=== PATIENT | male | born 1950 ===

== ENCOUNTER 2017-06-19 14:52 | Inpatient (IN) | payer BC, SELFPAY ==
[~2017-06-19 14:52] MED LIST: Dexamethasone 20 MG/5 ML VIAL ONE; Glycopyrrolate 0.2 MG/ML 5 ML SYRINGE ONE; Iopamidol 370 76% 150 ML VIAL FS ONE; Ondansetron PF 4 MG/2 ML Vial ONE; PROPOFOL 200 MG/20 ML VIAL ONE; Succinylcholine Chloride 20 MG/ML 10 ml SYRINGE FS ONE
--- NOTE | 2017-06-19 15:20 | CT ---
CT BRAIN WITHOUT CONTRAST: Date: 06/19/17 HISTORY: Slurred speech and left arm paralysis. FINDINGS: No evidence of infarct, hemorrhage, midline shift, or abnormal extra-axial fluid collections are seen . The ventricular size is appropriate and the basilar cisterns are patent. The bony calvarium is inta ct. The visualized paranasal sinuses and mastoid air cells are well aerated. IMPRESSION: No CT evidence of acute intracranial process. Findings discussed over the telephone with ER physician, Dr. Barry, at 1503 hours. CODE CR. POS: JOSE ALBERTO
[2017-06-19 15:51] LABS: #Basophils 0.1 thou/uL (0.0-0.2); #Eosinphils 0.3 thou/uL (0.0-0.7); #Lymphocytes 1.2 thou/uL (1.20-3.40); #Monocytes 0.7 thou/uL (0.11-0.59); #Neutrophils 4.5 thou/uL (1.40-6.50); %Basophils 1.3 % (0.0-1.0); %Eosinophils 3.8 % (0.0-10.0); %Lymphocytes 17.6 % (21.0-51.0); %Monocytes 10.8 % (0.0-10.0); %Neutrophils 66.5 % (42.0-75.0); Hemoglobin 11.7 g/dL (14.0-18.0); Mean Corpuscular HGB CONC 33.2 g/dL (32.0-36.0); Mean Corpuscular Hemoglobin 28.8 pg (27.0-31.0); Mean Corpuscular Volume 86.8 fl (80.0-94.0); Mean Platelet Volume 7.1 fL (7.4-10.4); Platelet Count 348 thou/uL (130-400); RBC Distribution Width 13.5 % (11.5-14.5); Red Blood Cell (RBC) Count 4.05 mill/uL (4.70-6.10); White Blood Cell (WBC) Count 6.7 thou/uL (4.8-10.8)
[2017-06-19 15:57] LABS: INR-International Normal Ratio 1.1; PTT 25.8 SEC (22.9-36.1); Prothrombin Time 14.1 SEC (12.0-14.7)
[2017-06-19 16:13] LABS: ALT (SGPT) 28 U/L (8-55); AST (SGOT) 24 U/L (5-34); Alkaline Phosphatase 117 U/L (40-150); Anion Gap 13 mmol/L (10-20); BUN (Urea Nitrogen) 30 mg/dL (8.4-25.7); Bilirubin, Total 0.3 mg/dL (0.2-1.2); Calc. Creatinine Clearance 0 mL/min (70-130); Calcium 8.9 mg/dL (7.8-10.44); Carbon Dioxide 20 mmol/L (23-31); Chloride 106 mmol/L (98-107); Estimated GFR-MDRD 50; Globulin 2.8 g/dL (2.4-3.5); Glucose 112 mg/dL (80-115); Potassium 4.4 mmol/L (3.5-5.1); Protein, Total 6.8 g/dL (5.8-8.1); Sodium 135 mmol/L (136-145)
[2017-06-19 16:14] LABS: Troponin I Less than 0.010 ng/mL (< 0.028)
[2017-06-19] MEDS ORDERED: Heparin 10,000 UNITS/1 ML VIAL ONE ×2 (16:40)
[2017-06-19 17:09] LABS: Bilirubin Negative (Negative); Blood, Urine Moderate (Negative); Clarity CLEAR (Clear); Glucose, Urine (Dipstick) Negative (Negative); Leukocyte Negative (Negative); Nitrite Negative (Negative); Protein, Urine (Dipstick) Negative (Neg-Trace); Specific Gravity, Urine 1.038 (1.002-1.036); Urobilinogen 0.2 mg/dL (0.2-1.0)
--- NOTE | 2017-06-19 17:09 | CT ---
CTA BRAIN WITH 3D VOLUME RENDERING CT NECK WITH 3D VOLUME RENDERING CTA BRAIN PERFUSION 06/19/17 CLINICAL HISTORY: Stroke, slurred speech and left arm paralysis. FINDINGS: Imaged aortic arch is patent as are the great vessels that emanate from the aortic arch. Each subclav daron artery is grossly patent. The bilateral common carotid arteries reveal no high grade focal stenos is or occlusion. There is a focal noncalcified plaque at the proximal aspect of the cervical right IC A with a subtle linear hypodensity emanating from the anterior aspect which may relate to a small are a of focal dissection. This produces slightly less than 50% focal narrowing. Cervical left ICA is pat ent. There is a focal filling defect indicating soft plaque producing thrombus at the right M1 segmen t within an approximate 1 cm length of absent contrast. There is reconstitution of flow within right side Sylvian peripheral MCA branches. No high grade stenosis or occlusion involving the left MCA, eit her HILTON or ATMOSPHERIC CHEMIST. Anterior communicating artery region is grossly unremarkable. CTA perfusion portion of the exam reveals a prominent sized region of reduced blood flow within the r ight MCA territory, both anterior and posterior divisions and extending into the right temporal lobe. Within the anterior division of right MCA territory, there is also reduced blood volume indicating c ompleted infarct. Relatively preserved volume, compared to blood flow is seen within the posterior di vision right MCA territory and within the right temporal lobe indicating moderate sized region of pen umbra. IMPRESSION: 1. Evidence to indicate an acute, soft plaque thrombus of the right MCA with associated large re gion of reduced blood flow within the right cerebral hemisphere. This does contain an area of complet ed infarction at the anterior division right MCA territory. CTA perfusion findings compatible with pe numbra are seen within the posterior division right MCA territory and right temporal lobe. These findings were conveyed via telephone to neurosurgeon, Hari Schwartz, at 1600 hours, 06/19/17. Code CR POS: RIAZ
[2017-06-19 17:11] LABS: Bacteria/HPF None Seen HPF (None Seen); Hyaline Casts/LPF 0-3 HYALINE CAST LPF (0-3 Hyaline); Pathc Cast-AUWi Flag 0.27 (0-2.49); RBC/HPF 21-50 HPF (0-3); Squamous Epithelial 0-3 HPF (0-3); WBC/HPF 0-3 HPF (0-3)
[2017-06-19 17:21] LABS: Renal Epithelial 0-3 HPF (0-3); Transitional Epithelial 0-3 HPF (0-3)
--- NOTE | 2017-06-19 17:27 | PRG ---
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 He developed abrupt onset of left dense hemiparesis with associated facial droop. He was brought to the ER where he underwent imaging which reveals no evidence for hemorrhage, but does reveal the presence of a thrombus within the right M1 segment. He had a perfusion study which reveals the presence of both ischemia and infarct. He has been receiving tPA in the ER and is now on his way to the [facility] for angiography and potential mechanical thrombectomy. He has no family present. He is, however, alert and oriented and understands the procedure. He is about to undergo as well as associated risks and benefits. The plan will be a diagnostic cerebral angiography while awake and potentially mechanical thrombectomy under general anesthesia. EVELIN
--- NOTE | 2017-06-19 17:48 | HP ---
DATE OF ADMISSION: 06/19/2017 PRIMARY CARE PHYSICIAN: Dr. Sarah Fischer in [place], [place] CHIEF COMPLAINT: Left-sided hemiparesis, left-sided neglect, facial droop and slurred speech. HISTORY OF PRESENTING ILLNESS: Mr. Whitlock is a 66-year-old male with past medical history of hypert ension and hypothyroidism, who was brought into the emergency room as a stroke alert. History is judie nly obtained by his friends present at bedside. His family is out of town and have been notified and they are on their way. According to his friends, they are attending first helper courses at [employer] and during one of t he presentations, the patient just fell forward and he was noticed to have significant left-sided wea kness, facial droop on the left side and left-side neglect. He did have some complaints of numbness and tingling in his left arm and his friends have noticed some slurred speech, but that resolved and he went to bed okay. He was brought into the emergency room and because he was in the TPA window, he is receiving TPA afte r consultation with neurologist by the emergency room physician. At the time of my examination, he i s still having significant symptoms, but has started to move his left toe. He is now being admitted to the Critical Care Unit for acute CVA status post TPA. PAST MEDICAL HISTORY: 1. Hypertension. 2. Hypothyroidism. PAST SURGICAL HISTORY: Left shoulder. PSYCHIATRIC HISTORY: No anxiety or depression. SOCIAL HISTORY: He used to be a smoker, but in according to his friends he has quit more than 15 yea rs ago, but they are not sure. No history of drug or alcohol abuse. FAMILY HISTORY: Cannot be obtained as the patient is somewhat confused and not able to provide any h istory at this time. ALLERGIES: No known medication allergies. MEDICATIONS: Listed in the emergency room record include; 1. Sertraline 100 mg 2. Pravastatin 80 mg. 3. Amlodipine 2.5 mg. 4. Levothyroxine 125 mcg. REVIEW OF SYSTEMS: The patient is unable to provide much of the review of systems as he keeps wantin g to get the Stevenson catheter out and is also confused and agitated at the same time. LABORATORY DATA AND IMAGING: CBC shows a hemoglobin of 11.7, otherwise unremarkable. Serum chemistr ies are showing sodium of 135, bicarbonate of 20, BUN 30, creatinine of 1.42. Cardiac enzymes are un remarkable. Liver enzymes within normal limits. His PT, PTT and INR are unremarkable. CT scan of t he head done emergently does not show any evidence of hemorrhage, infarct or midline shift. A CT ang iogram of the head and neck has been ordered, but has not been done as yet. A 12-lead EKG by debby menon shows normal sinus rhythm at 91 beats per minute with normal ST segments and normal T waves. PHYSICAL EXAMINATION: VITAL SIGNS: Upon presentation include blood pressure 140/90, pulse of 91, respirations 18, saturati ng 95% on room air. GENERAL: He is agitated and is moving his right arm and right leg freely and wants the Stevenson cathete r out. He keeps his eyes closed throughout the interview and is showing signs of significant left-si ded neglect. No acute distress. HEENT: Mucous membrane appears moist. No oropharyngeal exudate or erythema. Significant left-sided facial droop and mild dysarthria noticed. Head is normocephalic, atraumatic. Pupils are equal, christine ctive to light and accommodation. NECK: Supple without any lymphadenopathy, JVD or bruit. CHEST: Clear to auscultation without any wheezing, rales or rhonchi. Rate and rhythm is regular wit hout any murmur, rubs or gallops. ABDOMEN: Soft, nontender, nondistended, positive bowel sounds. EXTREMITIES: Free of any cyanosis, clubbing, or edema. NEUROLOGIC: Shows left upper arm and left leg paralysis. He has significant left-sided neglect wher e he is responding only to the right side. He keeps his eyes closed and appears confused and agitate d. He has significant left-sided facial droop. Mild dysarthria also noticed. SKIN: Free of any rashes or bruises. Feels warm and dry to touch. No jaundice. PSYCHIATRIC: Agitation. VASCULAR: +2 pedal pulses felt bilaterally. IMPRESSION AND PLAN: 1. Acute cerebrovascular accident with left-sided hemiparesis. The patient is a right-hand dominant . He is actively being given TPA after consultation with Neurology by the emergency room physician. At this time, he will be admitted to Critical Care Unit with the post-TPA protocol. He will not be receiving any blood thinners or anticoagulants or antiplatelet medications for 24 hours post-TPA. We will obtain frequent neuro checks and q.1 hour vital signs. We will avoid any blood draws for the n ext 24 hours as well. Neurosurgery, Dr. Schwartz has also been notified who will see the patient along with Neurology, Dr. Nichols, who has been notified. Follow the results of the CT angio. P.r.n. medi cations to allow for permissive hypertension at this time. We will go ahead and do the workup for th e stroke including carotid Doppler ultrasound as well as transthoracic echocardiogram and MRI of the brain. He will be on the fall and seizure precautions with a seemingly massive stroke. His family h as been notified by the emergency room and is on their way. 2. History of hypertension, currently controlled. We will keep his systolic blood pressure around 1 80 or higher and his diastolic blood pressure around 90 or higher. P.r.n. antihypertensives have bee n ordered for the margin of permissive hypertension. 3. History of hypothyroidism. His home medications will be restarted after he passes a swallow stud y by the speech therapist. 4. Stroke team orders including PT, OT, and speech therapy. He will be n.p.o. for now. 5. Code status: FULL CODE. The patient is unable to tell me what he really wants at this time, but it is presumed full as notified by his friends present at the bedside per their prior discussion wit h patient. 6. Add deep venous thrombosis and gastrointestinal prophylaxis. We will avoid any pharmacological d eep venous thrombosis prophylaxis. We will use Pepcid b.i.d. IV for gastrointestinal prophylaxis and sequential compression devices. DISPOSITION: Mr. Whitlock is being admitted to the Critical Care Unit for acute CVA status post TPA. He will be monitored closely and estimated length of stay is at least 2-3 midnight for now. Further management will depend upon his clinical course. Neurology and Neurosurgery have been consulted.
[2017-06-19] MEDS ORDERED: SUGAMMADEX SODIUM 500 MG/5 ML VIAL ONE (18:34)
[2017-06-19] MEDS ORDERED: Labetalol HCl 100 MG/20 ML VIAL SLOW IVP PRN ×2 (18:43→19:50)
[2017-06-19] MEDS ORDERED: niCARdipine 20MG in NaCl 200 ML BAG IVPB PRN ×2 (18:43→19:50)
[2017-06-19] MEDS ORDERED: Acetaminophen 650 MG Suppository PR PRN ×2 (18:43→19:50)
[2017-06-19] MEDS: Sodium Chloride 0.9% 1,000 ML IV SCH ×2 (19:30→21:33)
[2017-06-19] MEDS ORDERED: Docusate 100 MG CAP PO PRN (19:50)
[2017-06-19] MEDS ORDERED: Bisacodyl 10 MG SUPP PR PRN (19:50)
[2017-06-19] MEDS ORDERED: Bisacodyl 5 MG TAB PO PRN (19:50)
[2017-06-19] MEDS ORDERED: Senokot 8.6 MG TAB PO PRN (19:50)
[2017-06-19] MEDS ORDERED: Mag-Al 1200 mg/1200 mg/30 ML UDCUP PO PRN ×2 (19:50)
[2017-06-19] MEDS ORDERED: Calcium Carbonate 500 MG ChewTAB PO PRN (19:50)
[2017-06-19] MEDS ORDERED: Milk Of Magnesia 30 ML UDCUP PO PRN (19:50)
--- NOTE | 2017-06-19 20:05 | CCL ---
SURGEON: Fabrizio Schwartz M.D. LOAN COORDINATOR: None. INDICATION: Ischemic stroke. DIAGNOSIS: Ischemic stroke. PROCEDURE: Diagnostic cerebral angiogram with mechanical thrombectomy. ANESTHESIA: General. TECHNIQUE: The patient was brought into the angiogram suite and placed on the table in supine position. Both groins were prepped and draped in usual sterile fashion. 1% lidocaine was used to inject the right groin. A 5 Yemeni micropuncture set was used to gain access right common femoral artery. Using the Seldinger technique, an 8 Yemeni sheath was placed. An 8 Yemeni concentric guide catheter passed over 120 cm diagnostic catheter was passed over a Bentson wire was placed into the aortic arch where the right common carotid artery was selectively catheterized. AP and lateral angiogram was performed. Thrombus was noted in the M1 segment of the right middle cerebral artery. At that point , the patient was placed under general anesthesia. A mechanical thrombectomy device Trevo was deployed a total of 3 times into the right middle cerebral artery as well as the bifurcation of the distal M1 branches of the right middle cerebral artery. After a total of 3 deployments there was complete temple of blood flow. All catheters were then removed. Sheath was sewn into place secondary to the previous administration of TPA. The procedure came to an end without known complication. EVELIN
[2017-06-19] MEDS ORDERED: Famotidine/PF 20 mg/2ml Vial SLOW IVP SCH (21:00)
[2017-06-20] MEDS: Sodium Chloride 0.9% 1,000 ML IV SCH ×3 (03:37→17:54)
[2017-06-20 06:29] LABS: Cardiac Risk 2.6 (Less than 4.5)
--- NOTE | 2017-06-20 07:39 | PRG ---
DATE OF SERVICE: 06/20/2017 SUBJECTIVE: Mr. Whitlock is now about 14 hours status post t-PA, mechanical thrombectomy. He remains in the ICU. He was extubated after the procedure last evening. His neurologic exam has improved dramatically. He now has almost normal strength in the left leg. He continues to have weakness in the left arm. He also has neglect. He had a CT scan performed this morning, which shows no evidence for hemorrhage, but does show small areas of infarct. PLAN: Will be ongoing stroke risk factor stratification as well as PT, OT and rehabilitation. EVELIN
--- NOTE | 2017-06-20 08:50 | CON ---
DATE OF CONSULTATION: 06/20/2017 CONSULTING PHYSICIAN: Hospital Service. IMPRESSION: 1. Right middle cerebral artery stroke. 2. Hypertension. 3. Hypothyroidism. PLAN: 1. Restart antiplatelet therapy after the 24 hour window on his TPA. 2. Continue statin. 3. Speech therapy, OT and PT evaluations. 4. Probable rehab transfer needed. HISTORY OF PRESENT ILLNESS: Mr. Whitlock is a 66-year-old man with past history of hypertension and T IA, he presented yesterday with left-sided weakness. His CTA showed a 50% right internal carotid art amol narrowing and a clot in the right MCA. He was given TPA and Dr. Schwartz was consulted. He went fo r the RICHARD procedure and clot was extracted. He has been moved to the ICU for monitoring. Unfortun ately, he has not seen a great deal of improvement in his left-sided weakness and neglect. PAST MEDICAL HISTORY: As listed above. PAST SURGICAL HISTORY: Left shoulder surgery. SOCIAL HISTORY: He is a former smoker, no tobacco or drug use. FAMILY HISTORY: Noncontributory. ALLERGIES: None. MEDICATIONS: Sertraline, pravastatin, amlodipine, Synthroid. REVIEW OF SYSTEMS: Joint pain and photosensitivity. PHYSICAL EXAMINATION: GENERAL: He is an overweight, middle age man, in no acute distress. VITAL SIGNS: Blood pressure 154/78, pulse 90, respirations 17, saturations 97%. HEENT: The patient did not want to open his eyes due to his light sensitivity. Cranium was normocep halic and atraumatic. NECK: No lymphadenopathy noted. EXTREMITIES: No cyanosis noted. NEUROLOGIC: He was awake and cooperative. He followed commands appropriately, answer questions in a n appropriate manner. Speech is mildly dysarthric. There is a left facial droop. There is a dense left hemiparesis as well as neglect. There is an upgoing toe on the left. Gait is not testable. No abnormal movements were seen. EKG shows normal sinus rhythm. Imaging studies were reviewed. LABORATORY STUDIES: Unremarkable. SUMMARY: This is a middle-aged man unfortunately suffered a fairly significant infarct in the right MCA distribution and his symptoms have not improved to a great deal despite the efforts. He was on a prior statin therapy, antiplatelet therapy can be started after he is out of the TPA window.
--- NOTE | 2017-06-20 08:51 | CT ---
PRELIMINARY REPORT/[facility]/EMERGENCY AFTER HOURS PROCEDURE: Addendum created by Malcom Garner MD on 06/20/2017 6:31 AM Central Time ([place] & [place]) THIS REPORT CONTAINS FINDINGS THAT MAY BE CRITICAL TO PATIENT CARE. The findings were verbally commun icated via telephone conference with RN Edvin Zepeda at 6:30 AM WEIGHT CALCULATOR on 06/20/2017. Nurse agreeed to relay findings to clinician. The findings were acknowledged and understood. Initial Report created on 06/20/2017 5:32 AM Central Time ([place] & [place]) EXAM: CT Head Without Intravenous Contrast CLINICAL HISTORY: 66 years old, male; Condition or disease; Other: CVA; Patient HX: F/u CVA TECHNIQUE: Axial computed tomography images of the head/brain without intravenous contrast. COMPARISON: CT Brain WO Con 2017-06-19 14:56 FINDINGS: Brain: New areas of hypodensity with loss of peralta-white differentiation in the right occipital and pa rietal lobes with partial effacement of the cerebral sulci concerning for evolving ischemia. No hemor rhage. Ventricles: Unremarkable. No ventriculomegaly. Bones/joints: Unremarkable. No acute fracture. Soft tissues: Unremarkable. Sinuses: Unremarkable as visualized. No acute sinusitis. Mastoid air cells: Unremarkable as visualized. No mastoid effusion. IMPRESSION: Findings highly suspicious for evolving ischemia in the right occipital and parietal lobes. Findings are new from prior. No hemorrhage. Follow up recommended. Thank you for allowing us to participate in the care of your patient. Dictated and Authenticated by: Malcom Garner MD 06/20/2017 5:32 AM Central Time ([place] & [place]) FINAL REPORT HEAD CT NONCONTRAST: Date: 06/20/17 I agree with the preliminary report given by vR. FINDINGS/IMPRESSION: Diffuse white matter hypoattenuation of the right cerebral hemisphere compatible with early subacute infarction throughout the right MCA distribution involving frontal and parietal lobes. There is also hypoattenuation within portions of the right temporal lobe with associated sulcal effacement. There is no obvious hemorrhagic transformation present. POS: [facility]
[2017-06-20] MEDS: Famotidine/PF 20 mg/2ml Vial SLOW IVP SCH ×2 (09:01→20:22)
--- NOTE | 2017-06-20 12:26 | MRI ---
MRI BRAIN NONCONTRAST: CLINICAL HISTORY: Left-sided weakness. History of recent mechanical thrombectomy. FINDINGS: There is multifocal restricted diffusion throughout the right cerebral hemisphere which involves the frontal, parietal, and temporal lobes as well as the right caudate and lentiform nuclei. There is a mild degree of hemosiderin indicating mild hemorrhagic transformation within the large region of rece nt infarction. Prominent patient motion limits the evaluation. There is mild effacement of the righ t lateral ventricle and slight leftward deviation on the magnitude of a few millimeters of the septum pellucidum to the left of midline. Mild mucosal thickening is seen within the paranasal sinuses. L imited evaluation of flow voids due to patient motion. There is a suggestion of subtle filling defec t within the M1 segment of the right MCA. IMPRESSION: Large region of recent infarction occupying the right middle cerebral artery territory. There is mil d hemosiderin deposition indicating a component of microhemorrhage. Continued head CT, noncontrast, followup would prove useful to provide continued assessment. POS: JOSE ALBERTO
[2017-06-20 12:57] LABS: INR-International Normal Ratio 1.2; PTT 30.2 SEC (22.9-36.1); Prothrombin Time 15.1 SEC (12.0-14.7)
--- NOTE | 2017-06-20 16:33 | PDOC.PN ---
- Subjective Encounter Start Date: 06/20/17 Encounter Start Time: 16:30 Subjective: f/u for large R MCA territorial CVA post-tPA and mech thrombectomy. -: L hemiparesis remains and significant VIVEROS. Neuro recommending restart -: anti-platelets after 24h post-tPA - Objective MAR Reviewed: Yes Vital Signs & Weight: Vital Signs (12 hours) Temp Pulse Pulse Pulse Resp BP BP 06/20/17 16:00 98.9 F 06/20/17 12:00 98.7 F 06/20/17 08:00 98.5 F 100 23 H 06/20/17 07:40 102 H 95 154/78 H 128/53 L 06/20/17 06:40 Pulse Ox Pulse Ox Pulse Ox 06/20/17 16:00 06/20/17 12:00 06/20/17 08:00 96 06/20/17 07:40 97 97 06/20/17 06:40 98 Weight Admit Weight 214 lb Weight 214 lb 1.102 oz Most Recent Monitor Data Heart Rate from ECG 91 NIBP 146/77 NIBP BP-Mean 92 Respiration from ECG 25 SpO2 96 I&O: 06/19/17 06/20/17 06/21/17 06:59 06:59 06:59 Intake Total 1000 Output Total 3263 685 Balance -0558 -059 Result Diagrams: 06/19/17 15:41 06/19/17 15:41 Additional Labs: Laboratory Tests 06/20/17 05:38 Triglycerides 82 Cholesterol 148 LDL Cholesterol, Calc 76 HDL Cholesterol 56 Radiology Reviewed by me: Yes (MRI Brain - large R MCA territorial CVA) EKG Reviewed by me: Yes (Tele - SR) Phys Exam - Physical Examination aphasia HEENT: PERRLA, oral pharynx no lesions Neck: no JVD, supple Respiratory: no wheezing Cardiovascular: RRR Gastrointestinal: soft, non-tender, no distention, positive bowel sounds Musculoskeletal: no edema, pulses present L hemiparesis, aphasia Skin: normal turgor, cap refill <2 seconds Dx/Plan (1) Cerebrovascular accident (CVA) involving right middle cerebral artery territory Code(s): I63.511 - CEREB INFRC D/T UNSP OCCLS OR STENOS OF RIGHT MID CEREB ART Status: Acute Comment: s/p t-PA and mech thrombectomy, likely resume antiplatelets in 24h, statin, check 2D echo, stroke protocol (2) Aphasia Code(s): R47.01 - APHASIA Status: Acute Comment: NPO currently, Speech to re -evaluate on 06/21 (3) Left hemiparesis Code(s): G81.94 - HEMIPLEGIA, UNSPECIFIED AFFECTING LEFT NONDOMINANT SIDE Status: Acute Comment: PT/OT, Rehab consult - Plan mcclure catheter, PT/OT, social welfare research worker, speech therapy, respiratory therapy, DVT proph w/SCDs Stable currently -: ST/OT/PT -: 2D echo pending -: Change Morphine Sulfate 4mg IV q4h prn -: AM lab: BMP * .
[2017-06-21 04:06] LABS: Anion Gap 14 mmol/L (10-20); BUN (Urea Nitrogen) 14 mg/dL (8.4-25.7); Calc. Creatinine Clearance 125 mL/min (70-130); Carbon Dioxide 20 mmol/L (23-31); Chloride 109 mmol/L (98-107); Estimated GFR-MDRD Greater than 90; Glucose 114 mg/dL (80-115); Potassium 3.9 mmol/L (3.5-5.1); Sodium 139 mmol/L (136-145)
[2017-06-21] MEDS: Sodium Chloride 0.9% 1,000 ML IV SCH ×2 (05:57→17:05)
[2017-06-21] MEDS: Famotidine/PF 20 mg/2ml Vial SLOW IVP SCH ×2 (08:19→20:43)
[2017-06-21] MEDS ORDERED: FLU VACC QS2017-18 36 mo. & older 0.5 ML SYRINGE IM ONE (09:00)
--- NOTE | 2017-06-21 13:37 | PDOC.PN ---
- Subjective Encounter Start Date: 06/21/17 Encounter Start Time: 09:45 Subjective: lethargic but awakens easily -: moves right extremities well - Objective MAR Reviewed: Yes Vital Signs & Weight: Vital Signs (12 hours) Temp Pulse Pulse Pulse Resp BP BP 06/21/17 11:00 99.2 F 06/21/17 08:45 77 66 143/77 H 129/59 L 06/21/17 08:00 98.7 F 71 12 06/21/17 04:00 98.7 F Pulse Ox Pulse Ox Pulse Ox 06/21/17 11:00 06/21/17 08:45 100 100 06/21/17 08:00 98 06/21/17 04:00 Weight Admit Weight 214 lb Weight 202 lb 13.204 oz Most Recent Monitor Data Heart Rate from ECG 84 NIBP 137/77 NIBP BP-Mean 90 Respiration from ECG 22 SpO2 100 I&O: 06/20/17 06/21/17 06/22/17 06:59 06:59 06:59 Intake Total 1000 1857 Output Total 3620 4310 1050 Balance -2620 -2453 -1050 Result Diagrams: 06/19/17 15:41 06/21/17 03:07 Phys Exam - Physical Examination HEENT: PERRLA, moist MMs Neck: no JVD, supple Respiratory: no wheezing, no rales Cardiovascular: RRR, no significant murmur Gastrointestinal: soft, non-tender, positive bowel sounds Musculoskeletal: no edema, pulses present left hemiplegia Psychiatric: A&O x 3 Dx/Plan (1) Cerebrovascular accident (CVA) involving right middle cerebral artery territory Code(s): I63.511 - CEREB INFRC D/T UNSP OCCLS OR STENOS OF RIGHT MID CEREB ART Status: Acute Comment: s/p t-PA and [facility] thrombectomy (2) HTN (hypertension) Code(s): I10 - ESSENTIAL (PRIMARY) HYPERTENSION Status: Chronic Qualifiers: Hypertension type: essential hypertension Qualified Code(s): I10 - Essential (primary) hypertension (3) Dyslipidemia Code(s): E78.5 - HYPERLIPIDEMIA, UNSPECIFIED Status: Chronic - Plan aspirin if ok with nsx -: continue home meds for htn and eye drops -: PT/OT/Speech evals -: mobilize as tolerated -: echo shows good ef with no thrombus, speech is improving * . Review of Systems - Medications/Allergies Allergies/Adverse Reactions: Allergies Allergy/AdvReac Type Severity Reaction Status Date / Time No Known Allergies Allergy Verified 06/19/17 21:20 Medications: Current Medications Acetaminophen (Tylenol) 650 mg RI Q6H PRN PRN Reason: Headache/Fever or Pain Acetaminophen (Tylenol) 650 mg PO Q4H PRN PRN Reason: Headache/Fever or Pain Hydrocodone Bitart/Acetaminophen (Maramec 5/325) 1 tab PO Q4H PRN PRN Reason: Moderate Pain (4-6) Al Hydroxide/Mg Hydroxide (Maalox) 30 ml PO QIDPRN PRN PRN Reason: Dyspepsia Al Hydroxide/Mg Hydroxide (Maalox) 30 ml PO Q6H PRN PRN Reason: Heartburn or Indigestion Bisacodyl (Dulcolax) 10 mg RI DAILYPRN PRN PRN Reason: Constipation Bisacodyl (Dulcolax) 10 mg PO DAILYPRN PRN PRN Reason: Constipation Calcium Carbonate (Tums) 1,000 mg PO Q4H PRN PRN Reason: Heartburn or Indigestion Docusate Sodium (Colace) 100 mg PO BIDPRN PRN PRN Reason: Constipation Famotidine (Pepcid) 20 mg SLOW IVP Q12HR [facility] Last Admin: 06/21/17 08:19 Dose: 20 mg Sodium Chloride (Normal Saline 0.9%) 1,000 mls @ 80 mls/hr IV .[id number] [facility] Last Admin: 06/21/17 05:57 Dose: 1,000 mls Labetalol HCl (Normodyne) 10 mg SLOW IVP Q2H PRN PRN Reason: SBP > 180 Last Admin: 06/20/17 16:48 Dose: 10 mg Magnesium Hydroxide (Milk Of Magnesium) 30 ml PO BIDPRN PRN PRN Reason: Constipation Morphine Sulfate (Morphine) 4 mg SLOW IVP Q2H PRN PRN Reason: Moderate to Severe Pain (6-10) Last Admin: 06/20/17 20:22 Dose: 4 mg Nicardipine/Sodium Chloride (Cardene) 0 mg IVPB INF PRN; Protocol PRN Reason: SBP > 180 mmHg Senna (Senokot) 2 tab PO HSPRN PRN PRN Reason: Constipation
--- NOTE | 2017-06-21 15:11 | PRG ---
DATE OF SERVICE: 06/21/2017 NEUROLOGIC FOLLOWUP SUBJECTIVE: Mr. Whitlock reports he is having some low grade headache, but no nausea or vomiting. Hi s vital signs have been stable through the evening and have remained in normal sinus rhythm. He repo rts that he does recognize his left side, but there is no movement they can be elicited. His MRI of the brain revealed fairly large area of ischemia in the right middle cerebral artery fiorella tory. Followup CT did not show any significant hemorrhage. He appears to be stable since yesterday. We will continue aspirin and statin. He will likely need t o be transferred to rehabilitation.
[2017-06-21] MEDS ORDERED: DIFLUPREDNATE R EYE SCH ×2 (17:00)
[2017-06-21] MEDS ORDERED: BOT R EYE SCH ×2 (17:00)
[2017-06-21] MEDS ORDERED: Acetaminophen 1,000 MG in Premix Bag 1 BAG IVPB SCH (17:15)
[2017-06-21] MEDS: Atorvastatin Calcium 20 MG TAB PO SCH (20:44)
[2017-06-21] MEDS ORDERED: [UNRECOGNIZED DRUG - OTHER] R EYE SCH (21:00)
[2017-06-22] MEDS: Levothyroxine Sodium 125 MCG TAB PO SCH (06:28)
[2017-06-22] MEDS: Sodium Chloride 0.9% 1,000 ML IV SCH ×2 (06:42→21:00)
[2017-06-22] MEDS: Aspirin 300 MG Suppository PR SCH (09:24)
[2017-06-22] MEDS: Famotidine/PF 20 mg/2ml Vial SLOW IVP SCH ×2 (09:24→21:03)
[2017-06-22] MEDS: Amlodipine 5 MG TAB PO SCH ×2 (09:36→21:04)
--- NOTE | 2017-06-22 10:48 | RAD ---
RADIOGRAPH CHEST 1 VIEW: HISTORY: 66-year-old male with cough. FINDINGS: There are no air space densities, pulmonary edema, pneumothorax, or cardiomegaly. The lateral costop hrenic angles are sharp. IMPRESSION: No acute cardiopulmonary findings. mariza [] POS: JOSE ALBERTO
--- NOTE | 2017-06-22 11:02 | PDOC.PN ---
- Subjective Encounter Start Date: 06/22/17 Encounter Start Time: 09:15 Subjective: awakens easily, moves left LE a bit now -: communicates briefly, oriented fairly well - Objective MAR Reviewed: Yes Vital Signs & Weight: Vital Signs (12 hours) Temp Pulse Resp BP BP Pulse Ox 06/22/17 09:36 63 162/79 H 06/22/17 08:00 98.5 F 63 20 150/79 H 100 06/22/17 03:30 99.1 F 77 16 142/83 H 97 06/21/17 23:30 99.4 F 64 18 131/70 96 Weight Admit Weight 214 lb Weight 208 lb Most Recent Monitor Data Heart Rate from ECG 71 NIBP 140/77 NIBP BP-Mean 115 Respiration from ECG 26 SpO2 98 I&O: 06/21/17 06/22/17 06/23/17 06:59 06:59 06:59 Intake Total 1857 1640 Output Total 4310 3150 Balance -2453 -1510 Result Diagrams: 06/19/17 15:41 06/21/17 03:07 Phys Exam - Physical Examination HEENT: PERRLA, sclera anicteric Neck: no JVD, supple Respiratory: no wheezing, no rales Cardiovascular: RRR, no significant murmur Gastrointestinal: soft, non-tender, positive bowel sounds Musculoskeletal: no edema, pulses present left hemiplegia, dysarthria Dx/Plan (1) Cerebrovascular accident (CVA) involving right middle cerebral artery territory Code(s): I63.511 - CEREB INFRC D/T UNSP OCCLS OR STENOS OF RIGHT MID CEREB ART Status: Acute Comment: s/p t-PA and [facility] thrombectomy (2) HTN (hypertension) Code(s): I10 - ESSENTIAL (PRIMARY) HYPERTENSION Status: Chronic Qualifiers: Hypertension type: essential hypertension Qualified Code(s): I10 - Essential (primary) hypertension (3) Dyslipidemia Code(s): E78.5 - HYPERLIPIDEMIA, UNSPECIFIED Status: Chronic - Plan awaiting speech to clear him for swallowing, if not will need peg -: PT to mobilize as tolerated, has nondominant cva hopefully will do well -: rehab eval -: d/w family at bedside, still has dense plegia of left UE, LE strength is2/5 -: asp, lipitor, norvasc and benazepril * . Review of Systems - Medications/Allergies Allergies/Adverse Reactions: Allergies Allergy/AdvReac Type Severity Reaction Status Date / Time No Known Allergies Allergy Verified 06/19/17 21:20 Medications: Current Medications Acetaminophen (Tylenol) 650 mg PO Q4H PRN PRN Reason: Headache/Fever or Pain Hydrocodone Bitart/Acetaminophen ([place] 5/325) 1 tab PO Q4H PRN PRN Reason: Moderate Pain (4-6) Al Hydroxide/Mg Hydroxide (Maalox) 30 ml PO QIDPRN PRN PRN Reason: Dyspepsia Amlodipine Besylate (Norvasc) 2.5 mg PO BID [facility] Last Admin: 06/22/17 09:36 Dose: Not Given Aspirin (Aspirin) 300 mg [place] DAILY [facility] Last Admin: 06/22/17 09:24 Dose: 300 mg Aspirin (Aspirin Chewable) 81 mg PO DAILY [facility] Last Admin: 06/22/17 09:36 Dose: Not Given Atorvastatin Calcium (Lipitor) 20 mg PO HS [facility] Last Admin: 06/21/17 20:44 Dose: Not Given Benazepril HCl (Lotensin) 10 mg PO BID [facility] Last Admin: 06/22/17 09:36 Dose: Not Given Bisacodyl (Dulcolax) 10 mg [place] DAILYPRN PRN PRN Reason: Constipation Docusate Sodium (Colace) 100 mg PO BIDPRN PRN PRN Reason: Constipation Famotidine (Pepcid) 20 mg SLOW IVP Q12HR [facility] Last Admin: 06/22/17 09:24 Dose: 20 mg Sodium Chloride (Normal Saline 0.9%) 1,000 mls @ 80 mls/hr IV .[id number] [facility] Last Admin: 06/22/17 06:42 Dose: 1,000 mls Labetalol HCl (Normodyne) 10 mg SLOW IVP Q2H PRN PRN Reason: SBP > 180 Last Admin: 06/20/17 16:48 Dose: 10 mg Levothyroxine Sodium (Synthroid) 125 mcg PO 0600 [facility] Last Admin: 06/22/17 06:28 Dose: Not Given Morphine Sulfate (Morphine) 4 mg SLOW IVP Q2H PRN PRN Reason: Moderate to Severe Pain (6-10) Last Admin: 06/20/17 20:22 Dose: 4 mg Homatropine Hydrobromide 5% Ophth Soln 0 each R EYE TID [facility] Difluprednate ( Durezol) 100 Drop/5 Ml Bot 0 each R EYE QID [facility] Sertraline HCl (Zoloft) 100 mg PO DAILY [facility] Last Admin: 06/22/17 09:36 Dose: Not Given
[2017-06-22] MEDS ORDERED: Tamsulosin HCl 0.4 MG CAP PO SCH (14:00)
[2017-06-22] MEDS: Atorvastatin Calcium 20 MG TAB PO SCH (21:04)
[2017-06-22] MEDS: Acetaminophen 325 MG TAB PO PRN (21:04)
[2017-06-23] MEDS: HYDROcodone/Acetaminophen 5/325 mg Tablet PO PRN ×3 (00:22→22:07)
[2017-06-23] MEDS: Levothyroxine Sodium 125 MCG TAB PO SCH (06:48)
[2017-06-23] MEDS: Acetaminophen 325 MG TAB PO PRN (06:53)
[2017-06-23] MEDS: Amlodipine 5 MG TAB PO SCH ×2 (08:33→22:07)
[2017-06-23] MEDS: Famotidine/PF 20 mg/2ml Vial SLOW IVP SCH (08:35)
[2017-06-23] MEDS: Aspirin 300 MG Suppository PR SCH (08:59)
[2017-06-23] MEDS ORDERED: Tamsulosin HCl 0.4 MG CAP PO SCH (09:00)
[2017-06-23 09:13] LABS: Hemoglobin 11.6 g/dL (14.0-18.0); Mean Corpuscular Hemoglobin 28.1 pg (27.0-31.0); Mean Corpuscular Volume 85.3 fl (80.0-94.0); Mean Platelet Volume 7.6 fL (7.4-10.4); Platelet Count 269 thou/uL (130-400); RBC Distribution Width 13.5 % (11.5-14.5); Red Blood Cell (RBC) Count 4.13 mill/uL (4.70-6.10); White Blood Cell (WBC) Count 7.9 thou/uL (4.8-10.8)
[2017-06-23 09:20] LABS: Anion Gap 13 mmol/L (10-20); BUN (Urea Nitrogen) 13 mg/dL (8.4-25.7); Calc. Creatinine Clearance 132 mL/min (70-130); Calcium 9.4 mg/dL (7.8-10.44); Carbon Dioxide 20 mmol/L (23-31); Chloride 105 mmol/L (98-107); Estimated GFR-MDRD Greater than 90; Glucose 119 mg/dL (80-115); Potassium 3.5 mmol/L (3.5-5.1); Sodium 134 mmol/L (136-145)
[2017-06-23 10:05] LABS: Lymphocytes 3 % (21-51); MDiff Complete? YES; Monocytes 4 % (0-10); Neutrophil 93 % (42-75); PLT Morphology Comment Appears Adequate
[2017-06-23 11:55] VITALS: BMI 29.7
--- NOTE | 2017-06-23 12:39 | PDOC.PN ---
- Subjective Encounter Start Date: 06/23/17 Encounter Start Time: 10:00 Subjective: awake, keeps his eyes closed -: oriented well -: moves left LE on the bed, cant lift, no movement of left UE - Objective MAR Reviewed: Yes Vital Signs & Weight: Vital Signs (12 hours) Temp Pulse Resp BP BP Pulse Ox 06/23/17 11:53 98.6 F 72 18 135/79 95 06/23/17 08:35 146/77 H 06/23/17 08:33 71 06/23/17 08:30 97.9 F 71 20 98 06/23/17 08:00 97.9 F 71 20 146/77 H 98 06/23/17 03:35 72 18 141/63 H 96 Weight Admit Weight 214 lb Weight 201 lb Most Recent Monitor Data Heart Rate from ECG 71 NIBP 140/77 NIBP BP-Mean 115 Respiration from ECG 26 SpO2 98 I&O: 06/22/17 06/23/17 06/24/17 06:59 06:59 06:59 Intake Total 1640 1860 Output Total 3150 5239 175 Balance -1510 -3379 -175 Result Diagrams: 06/23/17 08:16 06/23/17 08:16 Phys Exam - Physical Examination HEENT: PERRLA, moist MMs Neck: no JVD, supple Respiratory: no wheezing, no rales Cardiovascular: RRR, no significant murmur Gastrointestinal: soft, non-tender, positive bowel sounds Musculoskeletal: no edema, pulses present left hemiplegia, dysarthria, aphasia Dx/Plan (1) Cerebrovascular accident (CVA) involving right middle cerebral artery territory Code(s): I63.511 - CEREB INFRC D/T UNSP OCCLS OR STENOS OF RIGHT MID CEREB ART Status: Acute Comment: s/p t-PA and [facility] thrombectomy (2) HTN (hypertension) Code(s): I10 - ESSENTIAL (PRIMARY) HYPERTENSION Status: Chronic Qualifiers: Hypertension type: essential hypertension Qualified Code(s): I10 - Essential (primary) hypertension (3) Dyslipidemia Code(s): E78.5 - HYPERLIPIDEMIA, UNSPECIFIED Status: Chronic - Plan is on pureed diet, await how much he can tolerate -: await rehab eval, gentle iv hydration until able to tolerate po well -: PT/OT to mobilize as tolerated -: d/w son and at bedside -: is on asp, lipitor, benazepril, norvasc, increase flomax to bid * . Review of Systems - Medications/Allergies Allergies/Adverse Reactions: Allergies Allergy/AdvReac Type Severity Reaction Status Date / Time No Known Allergies Allergy Verified 06/19/17 21:20 Medications: Current Medications Acetaminophen (Tylenol) 650 mg PO Q4H PRN PRN Reason: Headache/Fever or Pain Last Admin: 06/23/17 06:53 Dose: 650 mg Hydrocodone Bitart/Acetaminophen ([place] 5/325) 1 tab PO Q4H PRN PRN Reason: Moderate Pain (4-6) Last Admin: 06/23/17 00:22 Dose: 1 tab Al Hydroxide/Mg Hydroxide (Maalox) 30 ml PO QIDPRN PRN PRN Reason: Dyspepsia Amlodipine Besylate (Norvasc) 2.5 mg PO BID [facility] Last Admin: 06/23/17 08:33 Dose: 2.5 mg Aspirin (Aspirin) 300 mg [place] DAILY [facility] Last Admin: 06/23/17 08:59 Dose: Not Given Aspirin (Aspirin Chewable) 81 mg PO DAILY [facility] Last Admin: 06/23/17 08:35 Dose: 81 mg Atorvastatin Calcium (Lipitor) 20 mg PO HS [facility] Last Admin: 06/22/17 21:04 Dose: 20 mg Benazepril HCl (Lotensin) 10 mg PO BID [facility] Last Admin: 06/23/17 08:35 Dose: 10 mg Bisacodyl (Dulcolax) 10 mg [place] DAILYPRN PRN PRN Reason: Constipation Docusate Sodium (Colace) 100 mg PO BIDPRN PRN PRN Reason: Constipation Famotidine (Pepcid) 20 mg SLOW IVP Q12HR [facility] Last Admin: 06/23/17 08:35 Dose: 20 mg Sodium Chloride (Normal Saline 0.9%) 1,000 mls @ 80 mls/hr IV .[id number] [facility] Last Admin: 06/22/17 21:00 Dose: 1,000 mls Labetalol HCl (Normodyne) 10 mg SLOW IVP Q2H PRN PRN Reason: SBP > 180 Last Admin: 06/20/17 16:48 Dose: 10 mg Levothyroxine Sodium (Synthroid) 125 mcg PO 0600 [facility] Last Admin: 06/23/17 06:48 Dose: 125 mcg Morphine Sulfate (Morphine) 4 mg SLOW IVP Q2H PRN PRN Reason: Moderate to Severe Pain (6-10) Last Admin: 06/20/17 20:22 Dose: 4 mg Homatropine Hydrobromide 5% Ophth Soln 0 each R EYE TID [facility] Difluprednate ( Durezol) 100 Drop/5 Ml Bot 0 each R EYE QID [facility] Sertraline HCl (Zoloft) 100 mg PO DAILY [facility] Last Admin: 06/23/17 08:35 Dose: 100 mg Tamsulosin HCl (Flomax) 0.4 mg PO DAILY [facility] Last Admin: 06/23/17 08:35 Dose: 0.4 mg
[2017-06-23] MEDS ORDERED: Oxybutynin 5 MG TAB PO SCH (12:42)
--- NOTE | 2017-06-23 14:51 | RAD ---
MODIFIED BARIUM SWALLOW IN THE PRESENCE OF A SPEECH THERAPIST: Date: 06/23/17 HISTORY: Dysphagia following cerebellar infarction, feeding difficulties. FINDINGS/IMPRESSION: There is laryngeal penetration and aspiration, particularly with thin liquids. No persistent pooling of contrast is seen in the vallecula or piriform sinuses. Please see recommendations of the speech therapist for further management. POS: JOSE ALBERTO
[2017-06-23] MEDS: Sodium Chloride 0.9% 1,000 ML IV SCH (15:39)
[2017-06-23] MEDS: Famotidine 20 MG TAB PO SCH (22:06)
[2017-06-23] MEDS: Atorvastatin Calcium 20 MG TAB PO SCH (22:06)
[2017-06-23] MEDS: Tamsulosin HCl 0.4 MG CAP PO SCH (22:06)
[2017-06-24] MEDS: Sodium Chloride 0.9% 1,000 ML IV SCH (05:07)
[2017-06-24] MEDS: Levothyroxine Sodium 125 MCG TAB PO SCH (05:08)
[2017-06-24 06:10] LABS: Anion Gap 13 mmol/L (10-20); BUN (Urea Nitrogen) 15 mg/dL (8.4-25.7); Calc. Creatinine Clearance 127 mL/min (70-130); Calcium 9.2 mg/dL (7.8-10.44); Carbon Dioxide 20 mmol/L (23-31); Chloride 107 mmol/L (98-107); Estimated GFR-MDRD Greater than 90; Glucose 101 mg/dL (80-115); Potassium 3.3 mmol/L (3.5-5.1); Sodium 137 mmol/L (136-145)
[2017-06-24] MEDS: Amlodipine 5 MG TAB PO SCH (08:53)
[2017-06-24] MEDS: Famotidine 20 MG TAB PO SCH (08:54)
[2017-06-24] MEDS: Tamsulosin HCl 0.4 MG CAP PO SCH (08:56)
[2017-06-24] MEDS ORDERED: Oxybutynin 5 MG TAB PO SCH (09:00)
--- NOTE | 2017-06-24 10:58 | PDOC.PN ---
- Subjective Encounter Start Date: 06/24/17 Encounter Start Time: 09:00 Subjective: awake, is eating better this am still not much -: no sob - Objective MAR Reviewed: Yes Vital Signs & Weight: Vital Signs (12 hours) Temp Pulse Resp BP BP Pulse Ox 06/24/17 08:57 98 F 88 18 136/70 93 L 06/24/17 08:54 136/70 06/24/17 08:53 85 06/24/17 04:00 97.5 F L 77 18 142/88 H 97 06/24/17 00:00 98.2 F 66 18 124/78 96 Weight Admit Weight 214 lb Weight 204 lb 11.2 oz Most Recent Monitor Data Heart Rate from ECG 71 NIBP 140/77 NIBP BP-Mean 115 Respiration from ECG 26 SpO2 98 I&O: 06/23/17 06/24/17 06/25/17 06:59 06:59 06:59 Intake Total 1860 1918 Output Total 5239 1395 Balance -3379 523 Result Diagrams: 06/23/17 08:16 06/24/17 05:17 Phys Exam - Physical Examination HEENT: PERRLA, moist MMs Neck: no JVD, supple Respiratory: no wheezing, no rales Cardiovascular: RRR, no significant murmur Gastrointestinal: soft, non-tender, positive bowel sounds Musculoskeletal: no edema, pulses present left hemiplegia, aphasia Psychiatric: A&O x 3 Dx/Plan (1) Cerebrovascular accident (CVA) involving right middle cerebral artery territory Code(s): I63.511 - CEREB INFRC D/T UNSP OCCLS OR STENOS OF RIGHT MID CEREB ART Status: Acute Comment: s/p t-PA and [facility] thrombectomy, left hemiplegia (2) HTN (hypertension) Code(s): I10 - ESSENTIAL (PRIMARY) HYPERTENSION Status: Chronic Qualifiers: Hypertension type: essential hypertension Qualified Code(s): I10 - Essential (primary) hypertension (3) Dyslipidemia Code(s): E78.5 - HYPERLIPIDEMIA, UNSPECIFIED Status: Chronic - Plan encourage po intake -: needs rehab, can barely stand with max assist -: left shoulder pain, will xray to r/o dislocation/subluxation -: on asp, lipitor, flomax, benazepril and norvasc -: await placement * . Review of Systems - Medications/Allergies Allergies/Adverse Reactions: Allergies Allergy/AdvReac Type Severity Reaction Status Date / Time No Known Allergies Allergy Verified 06/19/17 21:20 Medications: Current Medications Acetaminophen (Tylenol) 650 mg PO Q4H PRN PRN Reason: Headache/Fever or Pain Last Admin: 06/23/17 06:53 Dose: 650 mg Hydrocodone Bitart/Acetaminophen ([place] 5/325) 1 tab PO Q4H PRN PRN Reason: Moderate Pain (4-6) Last Admin: 06/23/17 22:07 Dose: 1 tab Al Hydroxide/Mg Hydroxide (Maalox) 30 ml PO QIDPRN PRN PRN Reason: Dyspepsia Amlodipine Besylate (Norvasc) 2.5 mg PO BID [facility] Last Admin: 06/24/17 08:53 Dose: 2.5 mg Aspirin (Aspirin Chewable) 81 mg PO DAILY [facility] Last Admin: 06/24/17 08:54 Dose: 81 mg Atorvastatin Calcium (Lipitor) 20 mg PO HS [facility] Last Admin: 06/23/17 22:06 Dose: 20 mg Benazepril HCl (Lotensin) 10 mg PO BID [facility] Last Admin: 06/24/17 08:54 Dose: 10 mg Bisacodyl (Dulcolax) 10 mg [place] DAILYPRN PRN PRN Reason: Constipation Docusate Sodium (Colace) 100 mg PO BIDPRN PRN PRN Reason: Constipation Famotidine (Pepcid) 20 mg PO BID [facility] Last Admin: 06/24/17 08:54 Dose: 20 mg Sodium Chloride (Normal Saline 0.9%) 1,000 mls @ 80 mls/hr IV .[id number] [facility] Last Admin: 06/24/17 05:07 Dose: 1,000 mls Labetalol HCl (Normodyne) 10 mg SLOW IVP Q2H PRN PRN Reason: SBP > 180 Last Admin: 06/20/17 16:48 Dose: 10 mg Levothyroxine Sodium (Synthroid) 125 mcg PO 0600 [facility] Last Admin: 06/24/17 05:08 Dose: 125 mcg Morphine Sulfate (Morphine) 4 mg SLOW IVP Q2H PRN PRN Reason: Moderate to Severe Pain (6-10) Last Admin: 06/20/17 20:22 Dose: 4 mg Oxybutynin Chloride (Ditropan) 5 mg PO DAILY [facility] Last Admin: 06/24/17 08:53 Dose: 5 mg Homatropine Hydrobromide 5% Ophth Soln 0 each R EYE TID [facility] Difluprednate ( Durezol) 100 Drop/5 Ml Bot 0 each R EYE QID [facility] Sertraline HCl (Zoloft) 100 mg PO DAILY [facility] Last Admin: 06/24/17 08:54 Dose: 100 mg Tamsulosin HCl (Flomax) 0.4 mg PO BID [facility] Last Admin: 06/24/17 08:56 Dose: 0.4 mg
[2017-06-24 12:13] VITALS: BP 134/77
--- NOTE | 2017-06-24 12:32 | RAD ---
LEFT SHOULDER THREE VIEWS: HISTORY: Questionable dislocation. COMPARISON: None. FINDINGS: On the scapular Y view, there is a lucency of the superior angle of the scapula. The coracoid proces s and glenoid are intact. The remainder of the shoulder is unremarkable. IMPRESSION: Concern for possible fracture of the scapular body, extending to the superior angle. POS: [facility]
[2017-06-24] MEDS: Acetaminophen 325 MG TAB PO PRN (16:01)
[2017-06-24] MEDS: HYDROcodone/Acetaminophen 5/325 mg Tablet PO PRN (16:01)
--- NOTE | 2017-06-24 16:25 | DIS ---
DATE OF ADMISSION: 06/19/2017 DATE OF DISCHARGE: 06/24/2017 DISCHARGE DISPOSITION: To rehabilitation. PRIMARY DISCHARGE DIAGNOSES: Acute cerebrovascular accident with left hemiplegia, aphasia, hemineglect to the left side, hypertension and dyslipidemia. PROCEDURES DONE DURING HOSPITALIZATION: The patient has had TPA given on arrival and he also had a thrombectomy done by Dr. Schwartz on arrival. CT angio of head and neck showed soft plaque thrombosis of the right MCA with associated large region of reduced blood flow within the right cerebral hemisphere, this does contain an area of completed infarct to the anterior division right MCA territory. Echo with 2D Doppler showed EF of 60% to 65%, no obvious thrombus seen. No regional wall motion abnormalities were seen. MRI brain showed large region of recent infarct occupying right MCA territory. There is mild hemosiderin deposition in the area. H&H 11 and 35, platelet count 269, MCV is 85, BUN and creatinine are 15 and 0.7, BNP 63, total cholesterol 148, triglycerides 82, LDL 76. DISCHARGE MEDICATIONS: Aspirin 81 mg p.o. daily, Norvasc with benazepril 1 tab p.o. twice daily, Pepcid 20 mg twice daily, levothyroxine 125 mcg p.o. q.a.m., Pravachol 80 mg p.o. at bedtime, sertraline 100 mg p.o. daily, Flomax 0.4 mg p.o. twice daily, Durezol and homatropine eye drops. ALLERGIES: No known drug allergies. INPATIENT CONSULTS: Dr. Fabrizio Schwartz for Interventional Neurosurgery, Dr. Nichols for Neurology. BRIEF COURSE DURING HOSPITALIZATION: The patient initially was brought to emergency room on the by his friends. After his friends called EMS as patient fell forward and he was noticed to have left-sided weakness, facial droop and left-sided neglect. Initial workup revealed left-sided hemiplegia with neglect on clinical exam. He has had TPA administered after stroke alert protocol was completed. As patient's symptoms continued, he has had thrombectomy done by Dr. Fabrizio Schwartz. Post these 2 procedures, the patient continued to have left-sided hemiplegia. At the time of this discharge , the patient has improved with his aphasia, but still has dense hemiplegia on the left side. Speech has cleared him for pureed diet for now. He is hemodynamically stable. The patient has started oral intake from yesterday and needs further encouragement. He is only eating 30% to 40% of his daily meals. If the patient were to decondition or have difficulty eating, he would benefit from having a feeding tube placed at the rehabilitation. Case management consultation was requested for rehab placement and this has been procured today. A total of 35 minutes was spent on discharge plan. Please see a [id number] documentation on [facility] for the day of discharge. EVELIN
[2017-06-24 17:55] VITALS: TEMP 98.1
--- NOTE | 2017-07-30 14:19 | EKG ---
Test Reason : Blood Pressure : / mmHG Vent. Rate : 091 BPM Atrial Rate : 091 BPM P-R Int : 168 ms QRS Dur : 092 ms QT Int : 364 ms P-R-T Axes : 056 078 068 degrees QTc Int : 447 ms Normal sinus rhythm Normal ECG Confirmed by ELOY ESTRADA ([id number]), market editor MAXINE CRISTINA ([id number]) on 07/30/2017 2:19:01 PM Referred By: NATALIE Confirmed By:ELOY ESTRADA
== END 2017-06-24 18:38 | DRG 24 ==
LOC: ERS 14:52 → CCU 16:01 → 2SE 17:08 → CCU 17:08 → ERS 17:08 → CCU 06-20 19:51 → 2SE 06-21 17:40
PROVIDERS: ADMIT Internal Medicine; ATTEND Internal Medicine
PROC: B31R1ZZ Fluoroscopy of Intracranial Arteries using Low Osmolar Contrast (ICD-10-PCS; principal; 2017-06-19)
PROC: [UNRECOGNIZED PROCEDURE] (2017-06-19)
PROC: 3E03317 Introduction of Other Thrombolytic into Peripheral Vein, Percutaneous Approach (ICD-10-PCS; 2017-06-19)
DX: I63.311 Cerebral infarction due to thrombosis of right middle cerebral artery (principal); G81.94 Hemiplegia, unspecified affecting left nondominant side; R47.01 Aphasia; I10 Essential (primary) hypertension; E03.9 Hypothyroidism, unspecified; Z87.891 Personal history of nicotine dependence; E78.5 Hyperlipidemia, unspecified
CPT/HCPCS: 0042T; 36415; 36416; 37184; 51702; 70450; 70496; 70498; 70551; 71045; 74230; 80048; 80053; 80061; 81003; 81015; 82553; 83880; 84484; 85025; 85347; 85610; 85730; 93005; 93306; 96365; 96376; 99292; C1757; C1887; G8978-GP-CM; G8979-GP-CJ; G8987-GO-CM; G8988-GO-CJ; G8996-GN-CL; G8996-GN-CM; G8997-GN-CK; J0131; J1100; J1644; J2270; J2405; J2704; J2997; S0028